=== PATIENT | female | born 1945 | race African-American/Black ===

== ENCOUNTER 2021-10-19 12:49 | Inpatient (IN) | payer MEDICARE, MEDICAID ==
[~2021-10-19] VITALS: Ht 162.6 cm; Wt 93.4 kg
[~2021-10-19 12:49] MED LIST: CYCL5TAB PO; METF-414 PO; NIFE60TA64 PO
[2021-10-19 15:00] LABS: CHLORIDE 108 mEq/L (98-107)
[2021-10-19 15:10] LABS: CREATINE KINASE 822 IU/L (26-192)
[2021-10-19 15:13] LABS: BASOPHILS % 0.1 % (0.0-2.0); HEMOGLOBIN. 13.3 g/dL (12.0-16.0); LYMPHOCYTES % 15.7 % (20.0-50.0); MEAN CORPUSCULAR HEMOGLOBIN 24.2 pg (28.0-32.0); MEAN CORPUSCULAR VOLUME 81.5 fL (81.0-99.0); MEAN PLATELET VOLUME 8.6 fl (7.4-10.4); MONOCYTES % 5.6 % (2.0-8.0); NEUTROPHILS % 78.6 % (40.0-76.0); PLATELET 339 x1000/uL (130-400); RED BLOOD CELL COUNT 5.52 mill/uL (4.2-5.4); RED CELL DISTRIBUTION WIDTH 20.4 % (11.6-14.6)
[2021-10-19] MEDS ORDERED: SODIUM CHLORIDE 0.9% 1,000 ML IV ONE ×2 (15:30)
[2021-10-19] MEDS ORDERED: ASPIRIN 81MG TABLET PO ONE (15:30)
[2021-10-19 17:02] LABS: CLARITY URINE TURBID (CLEAR); COLOR URINE YELLOW (YELLOW); KETONES URINE NEGATIVE (NEGATIVE); LEUKOCYTE ESTERASE URINE 3+ (NEGATIVE); NITRITE URINE NEGATIVE (NEGATIVE); OCCULT BLOOD URINE 3+ (NEGATIVE); PH URINE 5.5 (4.5-8.0); PROTEIN URINE 2+ (NEGATIVE); SPECIFIC GRAVITY URINE 1.016 (1.005-1.030); UROBILINOGEN URINE 0.2 E.U./dL (0.2-1.0)
[2021-10-19] MEDS ORDERED: CEFTRIAXONE 1 G PREMIX 50 ML IV ONE (18:15)
[2021-10-19] MEDS ORDERED: DEXTROSE 50% WATER 50ML SYRINGE IV PRN (19:15)
[2021-10-19] MEDS ORDERED: CEFTRIAXONE 1 G PREMIX 50 ML IV SCH (19:15)
[2021-10-19] MEDS ORDERED: ONDANSETRON HCL 4MG/2ML INJ IV PRN (19:15)
[2021-10-19] MEDS: SODIUM CHLORIDE 0.9% 1,000 ML IV SCH (19:58)
[2021-10-19] MEDS: ENOXAPARIN 30MG/0.3ML SYR SUBCUT SCH (19:58)
[2021-10-19] MEDS ORDERED: CEFTRIAXONE 1 G PREMIX 50 ML IV NR (20:00)
[2021-10-19] MEDS: CLONIDINE 0.1MG TABLET PO PRN (20:05)
[2021-10-20 04:00] VITALS: BP 152/61
[2021-10-20] MEDS ORDERED: NIFE-72 MT (04:06)
[2021-10-20] MEDS ORDERED: IBUP-2028 MT (04:08)
[2021-10-20] MEDS ORDERED: ALBU6.7H15 INH (04:08)
[2021-10-20 04:42] VITALS: BP 152/61
[2021-10-20] MEDS: SODIUM CHLORIDE 0.9% 1,000 ML IV SCH ×2 (06:07→10:33)
[2021-10-20] MEDS ORDERED: ASPIRIN 81MG TABLET PO SCH (06:45)
[2021-10-20] MEDS: OMEPRAZOLE 20MG CAPSULE EXTENDED RELEASE PO SCH (06:47)
[2021-10-20 07:49] LABS: HEMATOCRIT. 35.8 % (36.0-48.0); HEMOGLOBIN. 11.4 g/dL (12.0-16.0); MEAN CORPUSCULAR HEMOGLOBIN 24.6 pg (28.0-32.0); MEAN CORPUSCULAR VOLUME 77.5 fL (81.0-99.0); MEAN PLATELET VOLUME 8.9 fl (7.4-10.4); PLATELET 351 x1000/uL (130-400); RED BLOOD CELL COUNT 4.62 mill/uL (4.2-5.4); RED CELL DISTRIBUTION WIDTH 18.9 % (11.6-14.6)
[2021-10-20 07:57] LABS: T4 FREE 1.13 ng/dL (0.76-1.46)
[2021-10-20 08:00] VITALS: BP 167/54
[2021-10-20] MEDS: CLONIDINE 0.1MG TABLET PO PRN ×3 (08:08→20:20)
[2021-10-20] MEDS ORDERED: POTASSIUM CHLORIDE 20MEQ TABLET SR PO SCH (09:00)
[2021-10-20 09:23] LABS: BG BASE EXCESS -5.4 mmol/L (-2.0-2.0); BG CARBOXYHEMOGLOBIN 0.3 % (0.5-1.5); BG DEOXYHEMOGLOBIN 2.7 % (0.0-5.0); BG FRACTION INSPIRED OXYGEN 21; BG HCO3 ACT 18.5 mmol/L (22.0-26.0); BG METHEMOGLOBIN 0.3 % (0.0-1.5); BG OXYGEN SATURATION 97.3 % (92.0-98.5); BG OXYHEMOGLOBIN 96.7 % (94.0-97.0); BG PCO2 31.1 mmHg (35.0-45.0); BG PH 7.393 (7.350-7.450); BG PO2 96.3 mmHg (75.0-100.0); BG SAMPLE SITE RIGHT BRACHIAL; BG TOTAL HEMOGLOBIN 12.1 g/dL (12.0-18.0); BG VENT MODE ROOM AIR
[2021-10-20] MEDS ORDERED: POTASSIUM CHLORIDE 20MEQ TABLET SR PO NR (09:30)
[2021-10-20 12:00] VITALS: BP 160/59
[2021-10-20] MEDS ORDERED: DEXTROSE 50% WATER 50ML SYRINGE IV PRN (12:30)
[2021-10-20] MEDS: CITRIC ACID/SODIUM CITRATE SOLN 30ML UDC PO SCH ×2 (12:38→18:16)
[2021-10-20] MEDS: DEXAMETHASONE 4MG/ML 1ML VIAL IV SCH ×3 (12:39→23:56)
[2021-10-20] MEDS: INSULIN LISPRO 100 UNITS/ML SUBCUT SCH ×3 (12:40→21:17)
[2021-10-20 12:57] LABS: *AMPHETAMINES SCREEN URINE NEGATIVE (NEGATIVE); *BARBITURATES SCREEN URINE NEGATIVE (NEGATIVE); *BENZODIAZEPINES SCREEN URINE NEGATIVE (NEGATIVE); *COCAINE SCREEN URINE NEGATIVE (NEGATIVE); CANNABINOID URINE SCREEN NEGATIVE (NEGATIVE); METHADONE URINE SCREEN NEGATIVE (NEGATIVE); OPIATES URINE SCREEN NEGATIVE (NEGATIVE); PHENCYCLIDINE URINE SCREEN NEGATIVE (NEGATIVE)
[2021-10-20 15:51] VITALS: BP 137/65
[2021-10-20] MEDS: BLOOD SUGAR DIAGNOSTIC STRIP TEST SCH ×2 (16:17→21:17)
[2021-10-20 20:00] VITALS: BP 189/97
[2021-10-20] MEDS: ENOXAPARIN 30MG/0.3ML SYR SUBCUT SCH (20:22)
[2021-10-20] MEDS: HYDROCODONE/ACETAMINOPHEN 5/325MG TABLET PO PRN (20:27)
[2021-10-20] MEDS: CEFTRIAXONE 1,000 MG in DEXTROSE 5% WATER 50 ML IV SCH (20:28)
[2021-10-20] MEDS: ZINC OXIDE 20% OINT 30GM TOP PRN (21:33)
[2021-10-20 22:20] LABS: CREATINE KINASE MB FRACTION 11.2 ng/mL (0.5-3.6)
[2021-10-21] VITALS (7 sets, daily range): BP systolic 144–200; BP diastolic 59–98
[2021-10-21] MEDS: HYDROCODONE/ACETAMINOPHEN 5/325MG TABLET PO PRN ×3 (00:21→17:37)
[2021-10-21] MEDS: CLONIDINE 0.2MG TABLET PO PRN ×2 (00:21→12:34)
[2021-10-21] MEDS: SODIUM CHLORIDE 0.9% 1,000 ML IV SCH ×3 (02:29→18:45)
[2021-10-21] MEDS: DEXAMETHASONE 4MG/ML 1ML VIAL IV SCH ×3 (05:36→17:36)
[2021-10-21] MEDS: OMEPRAZOLE 20MG CAPSULE EXTENDED RELEASE PO SCH (06:16)
[2021-10-21] MEDS: INSULIN LISPRO 100 UNITS/ML SUBCUT SCH ×4 (06:17→20:40)
[2021-10-21] MEDS: BLOOD SUGAR DIAGNOSTIC STRIP TEST SCH ×4 (06:17→20:40)
[2021-10-21 06:19] LABS: HEMATOCRIT. 34.9 % (36.0-48.0); HEMOGLOBIN. 11.2 g/dL (12.0-16.0); MEAN CORPUSCULAR HEMOGLOBIN 24.4 pg (28.0-32.0); MEAN CORPUSCULAR VOLUME 76.4 fL (81.0-99.0); MEAN PLATELET VOLUME 9.2 fl (7.4-10.4); PLATELET 400 x1000/uL (130-400); RED BLOOD CELL COUNT 4.57 mill/uL (4.2-5.4)
[2021-10-21] MEDS: CITRIC ACID/SODIUM CITRATE SOLN 30ML UDC PO SCH ×3 (09:48→17:33)
[2021-10-21] MEDS: ASPIRIN 81MG TABLET PO SCH (09:49)
[2021-10-21] MEDS ORDERED: POTASSIUM CHLORIDE 20MEQ/PACKET PO NR (10:45)
[2021-10-21] MEDS: MAGNESIUM/ALUMINUM HYDROXIDE/SIMETHICONE 30ML UDC PO PRN (17:36)
[2021-10-21] MEDS: NIFEDIPINE XL 60MG TAB PO SCH (17:37)
[2021-10-21] MEDS ORDERED: NALOXONE HCL 0.4MG/ML VIAL IV PRN (18:30)
[2021-10-21] MEDS: ENOXAPARIN 30MG/0.3ML SYR SUBCUT SCH (18:45)
[2021-10-21] MEDS: CEFTRIAXONE 1,000 MG in DEXTROSE 5% WATER 50 ML IV SCH (19:41)
[2021-10-21 22:11] LABS: PLATELET ESTIMATE NORMAL
[2021-10-21 23:01] LABS: PLATELET ESTIMATE NORMAL
[2021-10-22] VITALS: BP 124/54
[2021-10-22] MEDS: DEXAMETHASONE 4MG/ML 1ML VIAL IV SCH ×3 (00:39→12:00)
[2021-10-22] MEDS: DOCUSATE SODIUM 100MG CAPSULE PO PRN ×2 (02:13→09:15)
[2021-10-22] MEDS: SODIUM CHLORIDE 0.9% 1,000 ML IV SCH ×2 (03:15→15:26)
[2021-10-22 04:00] VITALS: BP 149/90
[2021-10-22] MEDS: ZINC OXIDE 20% OINT 30GM TOP PRN ×2 (05:47→09:14)
[2021-10-22] MEDS: MAGNESIUM/ALUMINUM HYDROXIDE/SIMETHICONE 30ML UDC PO PRN (06:02)
[2021-10-22] MEDS: INSULIN LISPRO 100 UNITS/ML SUBCUT SCH ×4 (06:05→21:51)
[2021-10-22] MEDS: BLOOD SUGAR DIAGNOSTIC STRIP TEST SCH ×4 (06:05→21:45)
[2021-10-22 07:08] LABS: HEMATOCRIT. 36.8 % (36.0-48.0); HEMOGLOBIN. 11.7 g/dL (12.0-16.0); MEAN CORPUSCULAR HEMOGLOBIN 24.3 pg (28.0-32.0); MEAN CORPUSCULAR VOLUME 76.5 fL (81.0-99.0); MEAN PLATELET VOLUME 9.2 fl (7.4-10.4); PLATELET 412 x1000/uL (130-400); RED BLOOD CELL COUNT 4.81 mill/uL (4.2-5.4); RED CELL DISTRIBUTION WIDTH 19.4 % (11.6-14.6)
[2021-10-22 07:48] LABS: PHOSPHORUS 1.9 mg/dL (2.5-4.9)
[2021-10-22 08:00] VITALS: BP 151/70
[2021-10-22 09:07] LABS: ANTI-NUCLEAR ANTIBODIES DIRECT Negative (Negative)
[2021-10-22] MEDS: CITRIC ACID/SODIUM CITRATE SOLN 30ML UDC PO SCH ×3 (09:14→19:06)
[2021-10-22] MEDS: ASPIRIN 81MG TABLET PO SCH (09:15)
[2021-10-22] MEDS: FAMOTIDINE 20MG TABLET PO SCH (09:15)
[2021-10-22] MEDS: NIFEDIPINE XL 60MG TAB PO SCH (09:15)
[2021-10-22] MEDS ORDERED: POTASSIUM CHLORIDE 20MEQ/PACKET PO NR (11:00)
[2021-10-22 12:00] VITALS: BP 143/66
[2021-10-22] MEDS ORDERED: DEXAMETHASONE 4MG/ML 1ML VIAL IV NR (14:15)
[2021-10-22] MEDS: ALBUTEROL 6.7GM HFA INHALER INH SCH ×2 (15:26→19:06)
[2021-10-22 16:00] VITALS: BP 155/69
[2021-10-22 18:29] LABS: PLATELET ESTIMATE INCREASED
[2021-10-22] MEDS: ENOXAPARIN 30MG/0.3ML SYR SUBCUT SCH (19:05)
[2021-10-22 20:00] VITALS: BP 135/57
[2021-10-22] MEDS: HYDROCODONE/ACETAMINOPHEN 5/325MG TABLET PO PRN (21:52)
[2021-10-22] MEDS: CEFTRIAXONE 1,000 MG in DEXTROSE 5% WATER 50 ML IV SCH (21:53)
[2021-10-22] MEDS: ACETAMINOPHEN 325MG TABLET PO PRN (22:03)
[2021-10-23] VITALS: BP 147/62
[2021-10-23 04:00] VITALS: BP 154/78
[2021-10-23] MEDS: BLOOD SUGAR DIAGNOSTIC STRIP TEST SCH ×4 (06:28→23:14)
[2021-10-23] MEDS: INSULIN LISPRO 100 UNITS/ML SUBCUT SCH ×4 (06:29→23:33)
[2021-10-23 07:04] LABS: HEMATOCRIT. 37.2 % (36.0-48.0); HEMOGLOBIN. 11.9 g/dL (12.0-16.0); MEAN CORPUSCULAR HEMOGLOBIN 24.1 pg (28.0-32.0); MEAN CORPUSCULAR VOLUME 75.5 fL (81.0-99.0); MEAN PLATELET VOLUME 9.5 fl (7.4-10.4); PLATELET 472 x1000/uL (130-400); RED BLOOD CELL COUNT 4.92 mill/uL (4.2-5.4); RED CELL DISTRIBUTION WIDTH 19.1 % (11.6-14.6)
[2021-10-23 07:24] LABS: PHOSPHORUS 1.9 mg/dL (2.5-4.9)
[2021-10-23 08:00] VITALS: BP 173/84
[2021-10-23] MEDS: ALBUTEROL 6.7GM HFA INHALER INH SCH ×2 (09:00→17:00)
[2021-10-23] MEDS: ASPIRIN 81MG TABLET PO SCH (09:32)
[2021-10-23] MEDS: NIFEDIPINE XL 60MG TAB PO SCH (09:32)
[2021-10-23] MEDS: FAMOTIDINE 20MG TABLET PO SCH (09:32)
[2021-10-23] MEDS: CITRIC ACID/SODIUM CITRATE SOLN 30ML UDC PO SCH ×3 (09:34→18:52)
[2021-10-23] MEDS ORDERED: POTASSIUM PHOS,M-BASIC-D-BASIC 30 MMOL in SODIUM CHLORIDE 0.9% 500 ML IV NR (11:30)
[2021-10-23 12:17] VITALS: BP 152/80
[2021-10-23 14:21] LABS: NUCLEATED RED BLOOD CELLS 2 /100 WBC; PLATELET ESTIMATE INCREASED
[2021-10-23 16:00] VITALS: BP 125/60
[2021-10-23] MEDS ORDERED: MAGNESIUM CITRATE 300ML SOLUTION PO NR (16:00)
[2021-10-23] MEDS ORDERED: LACTULOSE 20G/30ML UDC PO PRN (16:00)
[2021-10-23] MEDS: ENOXAPARIN 40MG/0.4ML SYR SUBCUT SCH (18:52)
[2021-10-23 22:15] VITALS: BP 136/70
[2021-10-23] MEDS: CEFTRIAXONE 1,000 MG in DEXTROSE 5% WATER 50 ML IV SCH (23:09)
[2021-10-24 00:30] VITALS: BP 160/104
[2021-10-24 04:00] VITALS: BP 140/77
[2021-10-24] MEDS: BLOOD SUGAR DIAGNOSTIC STRIP TEST SCH ×4 (06:45→21:43)
[2021-10-24 07:52] LABS: HEMATOCRIT. 39.1 % (36.0-48.0); HEMOGLOBIN. 12.3 g/dL (12.0-16.0); MEAN CORPUSCULAR VOLUME 76.4 fL (81.0-99.0); MEAN PLATELET VOLUME 9.6 fl (7.4-10.4); PLATELET 406 x1000/uL (130-400); RED BLOOD CELL COUNT 5.11 mill/uL (4.2-5.4); RED CELL DISTRIBUTION WIDTH 18.7 % (11.6-14.6)
[2021-10-24 07:57] LABS: CHLORIDE 105 mEq/L (98-107)
[2021-10-24 08:00] VITALS: BP 144/83
[2021-10-24] MEDS: CITRIC ACID/SODIUM CITRATE SOLN 30ML UDC PO SCH (08:47)
[2021-10-24] MEDS: NIFEDIPINE XL 60MG TAB PO SCH (08:48)
[2021-10-24] MEDS: ASPIRIN 81MG TABLET PO SCH (08:48)
[2021-10-24] MEDS: FAMOTIDINE 20MG TABLET PO SCH (08:48)
[2021-10-24] MEDS: ENOXAPARIN 40MG/0.4ML SYR SUBCUT SCH (08:50)
[2021-10-24] MEDS: INSULIN LISPRO 100 UNITS/ML SUBCUT SCH ×4 (08:51→21:57)
[2021-10-24] MEDS: ALBUTEROL 6.7GM HFA INHALER INH SCH (09:00)
[2021-10-24] MEDS: POTASSIUM CHLORIDE 20MEQ TABLET SR PO SCH ×2 (09:45→18:18)
[2021-10-24 09:57] LABS: PLATELET ESTIMATE NORMAL
[2021-10-24 12:00] VITALS: BP 143/80
[2021-10-24] MEDS ORDERED: GADOTERATE MEGLUMINE 5 MMOL/10 ML VIAL IV ONE ×2 (15:49→16:00)
[2021-10-24 16:00] VITALS: BP 140/82
[2021-10-24 20:00] VITALS: BP 157/76
[2021-10-24 21:17] LABS: BASOPHILS % 0.3 % (0.0-2.0); EOSINOPHILS % 0.1 % (0.0-5.0); HEMATOCRIT. 41.7 % (36.0-48.0); HEMOGLOBIN. 12.9 g/dL (12.0-16.0); LYMPHOCYTES % 26.7 % (20.0-50.0); MEAN CORPUSCULAR VOLUME 77.7 fL (81.0-99.0); MEAN PLATELET VOLUME 9.7 fl (7.4-10.4); MONOCYTES % 4.9 % (2.0-8.0); PLATELET 392 x1000/uL (130-400); RED BLOOD CELL COUNT 5.37 mill/uL (4.2-5.4); RED CELL DISTRIBUTION WIDTH 19.2 % (11.6-14.6)
[2021-10-24] MEDS: CEFTRIAXONE 1,000 MG in DEXTROSE 5% WATER 50 ML IV SCH (21:57)
[2021-10-25] VITALS: BP 145/80
[2021-10-25 04:00] VITALS: BP 133/92
[2021-10-25] MEDS: INSULIN LISPRO 100 UNITS/ML SUBCUT SCH ×3 (06:09→22:05)
[2021-10-25] MEDS: BLOOD SUGAR DIAGNOSTIC STRIP TEST SCH ×4 (06:09→20:01)
[2021-10-25 08:00] VITALS: BP 146/71
[2021-10-25 08:04] LABS: BASOPHILS % 0.2 % (0.0-2.0); EOSINOPHILS % 0.1 % (0.0-5.0); HEMATOCRIT. 39.2 % (36.0-48.0); HEMOGLOBIN. 12.3 g/dL (12.0-16.0); LYMPHOCYTES % 28.7 % (20.0-50.0); MEAN CORPUSCULAR HEMOGLOBIN 24.2 pg (28.0-32.0); MEAN PLATELET VOLUME 9.1 fl (7.4-10.4); MONOCYTES % 5.2 % (2.0-8.0); NEUTROPHILS % 65.8 % (40.0-76.0); PLATELET 386 x1000/uL (130-400); RED BLOOD CELL COUNT 5.09 mill/uL (4.2-5.4); RED CELL DISTRIBUTION WIDTH 18.9 % (11.6-14.6)
[2021-10-25] MEDS: NIFEDIPINE XL 60MG TAB PO SCH (08:20)
[2021-10-25] MEDS: FAMOTIDINE 20MG TABLET PO SCH (08:20)
[2021-10-25] MEDS: ENOXAPARIN 40MG/0.4ML SYR SUBCUT SCH (08:20)
[2021-10-25] MEDS: ASPIRIN 81MG TABLET PO SCH (08:20)
[2021-10-25 08:37] LABS: PHOSPHORUS 3.3 mg/dL (2.5-4.9)
[2021-10-25] MEDS: ALBUTEROL 6.7GM HFA INHALER INH SCH ×2 (09:00→16:50)
[2021-10-25 12:00] VITALS: BP 142/70
[2021-10-25 16:00] VITALS: BP 138/72
[2021-10-25] MEDS: CLOPIDOGREL 75MG TABLET PO SCH (16:51)
[2021-10-25 20:00] VITALS: BP 139/64
[2021-10-25] MEDS: ACETAMINOPHEN 325MG TABLET PO PRN (22:06)
[2021-10-26] VITALS: BP_SYST 145; BP_SYST 158; BP_DIAS 56; BP_DIAS 80
[2021-10-26 04:00] VITALS: BP 137/71
[2021-10-26] MEDS: BLOOD SUGAR DIAGNOSTIC STRIP TEST SCH ×4 (05:14→19:59)
[2021-10-26] MEDS: INSULIN LISPRO 100 UNITS/ML SUBCUT SCH ×4 (05:47→21:32)
[2021-10-26 08:00] VITALS: BP 131/63
[2021-10-26] MEDS: FAMOTIDINE 20MG TABLET PO SCH (08:01)
[2021-10-26] MEDS: ENOXAPARIN 40MG/0.4ML SYR SUBCUT SCH (08:01)
[2021-10-26] MEDS: CLOPIDOGREL 75MG TABLET PO SCH (08:01)
[2021-10-26] MEDS: ALBUTEROL 6.7GM HFA INHALER INH SCH ×2 (08:01→17:44)
[2021-10-26] MEDS: POTASSIUM CHLORIDE 20MEQ TABLET SR PO SCH (08:02)
[2021-10-26] MEDS: ASPIRIN 81MG TABLET PO SCH (08:02)
[2021-10-26] MEDS: NIFEDIPINE XL 60MG TAB PO SCH (08:02)
[2021-10-26 11:13] LABS: HEMATOCRIT. 36.6 % (36.0-48.0); HEMOGLOBIN. 11.7 g/dL (12.0-16.0); MEAN CORPUSCULAR HEMOGLOBIN 24.4 pg (28.0-32.0); MEAN CORPUSCULAR VOLUME 76.5 fL (81.0-99.0); MEAN PLATELET VOLUME 8.9 fl (7.4-10.4); PLATELET 385 x1000/uL (130-400); RED BLOOD CELL COUNT 4.79 mill/uL (4.2-5.4); RED CELL DISTRIBUTION WIDTH 18.9 % (11.6-14.6)
[2021-10-26] MEDS: ACETAMINOPHEN 325MG TABLET PO PRN (11:41)
[2021-10-26 12:00] VITALS: BP 158/68
[2021-10-26 13:29] LABS: PLATELET ESTIMATE NORMAL
[2021-10-26 16:00] VITALS: BP 120/90
[2021-10-26 20:00] VITALS: BP 153/53
[2021-10-27] VITALS: BP 136/62
[2021-10-27 04:00] VITALS: BP 142/71
[2021-10-27] MEDS: BLOOD SUGAR DIAGNOSTIC STRIP TEST SCH ×4 (05:15→20:47)
[2021-10-27] MEDS: INSULIN LISPRO 100 UNITS/ML SUBCUT SCH ×4 (05:50→21:39)
[2021-10-27 06:50] LABS: HEMATOCRIT. 37.3 % (36.0-48.0); HEMOGLOBIN. 11.6 g/dL (12.0-16.0); MEAN CORPUSCULAR HEMOGLOBIN 23.9 pg (28.0-32.0); MEAN CORPUSCULAR VOLUME 76.9 fL (81.0-99.0); MEAN PLATELET VOLUME 9.4 fl (7.4-10.4); PLATELET 378 x1000/uL (130-400); RED BLOOD CELL COUNT 4.85 mill/uL (4.2-5.4); RED CELL DISTRIBUTION WIDTH 18.5 % (11.6-14.6)
[2021-10-27 08:00] VITALS: BP 125/61
[2021-10-27] MEDS: FAMOTIDINE 20MG TABLET PO SCH (09:36)
[2021-10-27] MEDS: ASPIRIN 81MG TABLET PO SCH (09:36)
[2021-10-27] MEDS: CLOPIDOGREL 75MG TABLET PO SCH (09:36)
[2021-10-27] MEDS: ALBUTEROL 6.7GM HFA INHALER INH SCH ×2 (09:37→16:39)
[2021-10-27] MEDS: ENOXAPARIN 40MG/0.4ML SYR SUBCUT SCH (09:37)
[2021-10-27] MEDS: NIFEDIPINE XL 60MG TAB PO SCH (09:37)
[2021-10-27] MEDS: POTASSIUM CHLORIDE 20MEQ TABLET SR PO SCH (09:40)
[2021-10-27 11:28] LABS: PLATELET ESTIMATE NORMAL
[2021-10-27 12:00] VITALS: BP 125/52
[2021-10-27 16:00] VITALS: BP 134/62
[2021-10-27] MEDS: ACETAMINOPHEN 325MG TABLET PO PRN (18:23)
[2021-10-27 20:00] VITALS: BP 135/60
[2021-10-28] VITALS: BP 124/54
[2021-10-28 04:00] VITALS: BP 135/48
[2021-10-28] MEDS: BLOOD SUGAR DIAGNOSTIC STRIP TEST SCH ×4 (06:10→20:45)
[2021-10-28] MEDS: INSULIN LISPRO 100 UNITS/ML SUBCUT SCH ×4 (07:17→20:43)
[2021-10-28 08:00] VITALS: BP 147/71
[2021-10-28] MEDS: POTASSIUM CHLORIDE 20MEQ TABLET SR PO SCH (09:19)
[2021-10-28] MEDS: FAMOTIDINE 20MG TABLET PO SCH (09:19)
[2021-10-28] MEDS: CLOPIDOGREL 75MG TABLET PO SCH (09:20)
[2021-10-28] MEDS: NIFEDIPINE XL 60MG TAB PO SCH (09:20)
[2021-10-28] MEDS: ENOXAPARIN 40MG/0.4ML SYR SUBCUT SCH (09:20)
[2021-10-28] MEDS: ASPIRIN 81MG TABLET PO SCH (09:20)
[2021-10-28] MEDS: ALBUTEROL 6.7GM HFA INHALER INH SCH ×2 (09:21→16:58)
[2021-10-28 09:40] LABS: BASOPHILS % 0.2 % (0.0-2.0); EOSINOPHILS % 1.1 % (0.0-5.0); HEMATOCRIT. 38.8 % (36.0-48.0); HEMOGLOBIN. 12.1 g/dL (12.0-16.0); LYMPHOCYTES % 24.9 % (20.0-50.0); MONOCYTES % 4.5 % (2.0-8.0); NEUTROPHILS % 69.3 % (40.0-76.0); PLATELET 418 x1000/uL (130-400); RED BLOOD CELL COUNT 5.03 mill/uL (4.2-5.4); RED CELL DISTRIBUTION WIDTH 18.3 % (11.6-14.6)
[2021-10-28 12:00] VITALS: BP 107/63
[2021-10-28 16:00] VITALS: BP 110/48
[2021-10-28 20:00] VITALS: BP 150/63
[2021-10-28] MEDS: ACETAMINOPHEN 325MG TABLET PO PRN (20:25)
[2021-10-29] VITALS: BP_SYST 118; BP_SYST 51; BP_DIAS 51; BP_DIAS 81
[2021-10-29 04:00] VITALS: BP 140/62
[2021-10-29] MEDS: BLOOD SUGAR DIAGNOSTIC STRIP TEST SCH ×4 (07:01→21:00)
[2021-10-29] MEDS: INSULIN LISPRO 100 UNITS/ML SUBCUT SCH ×4 (07:02→21:00)
[2021-10-29 08:00] VITALS: BP 125/62
[2021-10-29] MEDS: FAMOTIDINE 20MG TABLET PO SCH (09:18)
[2021-10-29] MEDS: ALBUTEROL 6.7GM HFA INHALER INH SCH ×2 (09:18→18:22)
[2021-10-29] MEDS: POTASSIUM CHLORIDE 20MEQ TABLET SR PO SCH (09:18)
[2021-10-29] MEDS: CLOPIDOGREL 75MG TABLET PO SCH (09:19)
[2021-10-29] MEDS: ENOXAPARIN 40MG/0.4ML SYR SUBCUT SCH (09:19)
[2021-10-29] MEDS: NIFEDIPINE XL 60MG TAB PO SCH (09:19)
[2021-10-29] MEDS: ASPIRIN 81MG TABLET PO SCH (09:19)
[2021-10-29] MEDS: ACETAMINOPHEN 325MG TABLET PO PRN (09:37)
[2021-10-29 12:00] VITALS: BP 105/70
[2021-10-29 16:00] VITALS: BP 125/67
[2021-10-29 20:00] VITALS: BP 118/76
[2021-10-30] VITALS: BP 124/53
[2021-10-30 01:39] LABS: CLARITY URINE CLOUDY (CLEAR); COLOR URINE YELLOW (YELLOW); KETONES URINE NEGATIVE (NEGATIVE); LEUKOCYTE ESTERASE URINE 3+ (NEGATIVE); NITRITE URINE NEGATIVE (NEGATIVE); OCCULT BLOOD URINE TRACE (NEGATIVE); PROTEIN URINE NEGATIVE (NEGATIVE); SPECIFIC GRAVITY URINE 1.011 (1.005-1.030); UROBILINOGEN URINE 0.2 E.U./dL (0.2-1.0)
[2021-10-30] MEDS: ACETAMINOPHEN 325MG TABLET PO PRN ×2 (03:35→14:33)
[2021-10-30 04:00] VITALS: BP 130/56
[2021-10-30] MEDS: INSULIN LISPRO 100 UNITS/ML SUBCUT SCH ×4 (05:55→21:33)
[2021-10-30] MEDS: BLOOD SUGAR DIAGNOSTIC STRIP TEST SCH ×4 (05:55→20:19)
[2021-10-30 08:00] VITALS: BP 141/71
[2021-10-30] MEDS: FAMOTIDINE 20MG TABLET PO SCH (08:50)
[2021-10-30] MEDS: ASPIRIN 81MG TABLET PO SCH (08:50)
[2021-10-30] MEDS: CLOPIDOGREL 75MG TABLET PO SCH (08:50)
[2021-10-30] MEDS: ENOXAPARIN 40MG/0.4ML SYR SUBCUT SCH (08:51)
[2021-10-30] MEDS: NIFEDIPINE XL 60MG TAB PO SCH (08:51)
[2021-10-30 12:00] VITALS: BP 127/86
[2021-10-30 16:00] VITALS: BP 135/69
[2021-10-30] MEDS ORDERED: CEFTRIAXONE 1 G PREMIX 50 ML IV SCH (17:45)
[2021-10-30 18:50] LABS: HEMATOCRIT. 36.7 % (36.0-48.0); HEMOGLOBIN. 11.6 g/dL (12.0-16.0); MEAN CORPUSCULAR HEMOGLOBIN 24.4 pg (28.0-32.0); MEAN CORPUSCULAR VOLUME 76.7 fL (81.0-99.0); MEAN PLATELET VOLUME 8.7 fl (7.4-10.4); PLATELET 422 x1000/uL (130-400); RED BLOOD CELL COUNT 4.78 mill/uL (4.2-5.4)
[2021-10-30 19:58] LABS: PLATELET ESTIMATE INCREASED
[2021-10-30 20:00] VITALS: BP 152/77
[2021-10-30] MEDS ORDERED: CEFTRIAXONE 1,000 MG in DEXTROSE 5% WATER 50 ML IV SCH (20:00)
[2021-10-31] VITALS: BP 144/71
[2021-10-31 04:00] VITALS: BP 158/94
[2021-10-31] MEDS: BLOOD SUGAR DIAGNOSTIC STRIP TEST SCH (05:33)
[2021-10-31] MEDS: INSULIN LISPRO 100 UNITS/ML SUBCUT SCH (05:46)
[2021-10-31 07:39] LABS: HEMATOCRIT. 34.6 % (36.0-48.0); HEMOGLOBIN. 11.3 g/dL (12.0-16.0); MEAN CORPUSCULAR HEMOGLOBIN 24.6 pg (28.0-32.0); MEAN CORPUSCULAR VOLUME 75.6 fL (81.0-99.0); MEAN PLATELET VOLUME 8.8 fl (7.4-10.4); PLATELET 412 x1000/uL (130-400); RED BLOOD CELL COUNT 4.58 mill/uL (4.2-5.4); RED CELL DISTRIBUTION WIDTH 18.1 % (11.6-14.6)
[2021-10-31 08:00] VITALS: BP 165/72
[2021-10-31 08:14] VITALS: BP 165/72
[2021-10-31] MEDS: ACETAMINOPHEN 325MG TABLET PO PRN (08:45)
[2021-10-31] MEDS: ENOXAPARIN 40MG/0.4ML SYR SUBCUT SCH (08:45)
[2021-10-31] MEDS: CLOPIDOGREL 75MG TABLET PO SCH (08:46)
[2021-10-31] MEDS: FAMOTIDINE 20MG TABLET PO SCH (08:46)
[2021-10-31] MEDS: NIFEDIPINE XL 60MG TAB PO SCH (08:46)
[2021-10-31 11:40] LABS: PLATELET ESTIMATE INCREASED
== END 2021-10-31 12:30 | DRG 720 ==
LOC: ER 13:14 → MICUSO 17:45 → 8WST 10-20 00:44
PROVIDERS: ADMIT Internal Medicine; ATTEND Internal Medicine
DX: A41.51 Sepsis due to Escherichia coli [E. coli] (principal); I63.542 Cerebral infarction due to unspecified occlusion or stenosis of left cerebellar artery; N17.9 Acute kidney failure, unspecified; M62.82 Rhabdomyolysis; D72.829 Elevated white blood cell count, unspecified; E11.22 Type 2 diabetes mellitus with diabetic chronic kidney disease; Z20.822 Contact with and (suspected) exposure to COVID-19; N18.9 Chronic kidney disease, unspecified; I12.9 Hypertensive chronic kidney disease with stage 1 through stage 4 chronic kidney disease, or unspecified chronic kidney disease; N39.0 Urinary tract infection, site not specified; E86.0 Dehydration; E87.6 Hypokalemia; T38.0X5A Adverse effect of glucocorticoids and synthetic analogues, initial encounter; J40 Bronchitis, not specified as acute or chronic; E86.9 Volume depletion, unspecified; K59.00 Constipation, unspecified; R80.9 Proteinuria, unspecified; Z79.899 Other long term (current) drug therapy; Y92.89 Other specified places as the place of occurrence of the external cause; R29.702 NIHSS score 2; I65.23 Occlusion and stenosis of bilateral carotid arteries
CPT/HCPCS: 36415; 36600; 70544; 70549; 70551; 71045; 71250; 74176; 76770; 80048; 80053; 80061; 80076; 80305; 81003; 82375; 82550; 82553; 82805; 82962; 83036; 83735; 83880; 84100; 84145; 84439; 84443; 84484; 85025; 86038; 86160; 87077; 87186; 87426; 92610; 93005; 93970; 97116; 97162; 97166; 97530; 97535; 99291; A9577; J0696; J1100; J1650; J1815; J3490; J7030; J7040; J7060